=== PATIENT | male | born 1955 | race Caucasian/White ===

== ENCOUNTER 2019-05-14 06:24 | Day surgery (SDC) | payer OTHER ==
[2019-05-14] VITALS (8 sets, daily range): BP systolic 127–142; BP diastolic 78–96
[~2019-05-14] VITALS: Ht 180.3 cm; Wt 92.1 kg
[~2019-05-14 06:24] MED LIST: BENADRYL25 MG ORAL; GRALISE600 MG PO; IBUPROFEN600 MG ORAL; LOVASTATIN20 MG ORAL; LYRICA75 M1 ORAL; PRILOSEC OTC20 MG ORAL; PROAIR HFA8.5 GM INH; PROBIOTIC1 EAC2 PO; RANITIDINE HCL150 M1 ORAL; SINGULAIR10 MG ORAL; SOMA350 MG PO; SYMBICORT 16010.2 G1 IH; ZOLPIDEM TARTRA10 MG ORAL
[2019-05-14] MEDS ORDERED: LR 1000ml 1,000 ML IVLG SCH ×2 (06:57→07:00)
[2019-05-14] MEDS ORDERED: Atropine Inj 1mg/10ml Syr IV PRN (07:00)
[2019-05-14] MEDS ORDERED: DiphenhydrAMINE 50mg/ml Inj IVP PRN (07:00)
[2019-05-14] MEDS ORDERED: fentaNYL 100 mcg/2 mL IV PRN (07:00)
[2019-05-14] MEDS ORDERED: Midazolam 2mg/2ml Inj IVP PRN (07:00)
--- NOTE | 2019-05-14 07:01 | Anethesia Preoperative Eval ---
Anesthesia Pre-op PMH/ROS General Date of Evaluation: May 14, 2019 Time of Evaluation: 06:58 Anesthesiologist: becky ASA Score: ASA 3 Mallampati Score Class I : Soft palate, uvula, fauces, pillars visible Class II: Soft palate, uvula, fauces visible Class III: Soft palate, base of uvula visible Class IV: Only hard plate visible Mallampati Classification: Class II Surgeon: shama Diagnosis: gerd Surgical Procedure: egd/colonoscopy Social History: smoking - former smoker Family History: no anesthesia problems Allergies: Coded Allergies: BENZONATATE (Verified Allergy, Mild, 05/14/19) SKIN RASH Medications: see eMAR Patient NPO?: Yes Past Medical History Pulmonary: Reports: asthma Gastrointestinal/Genitourinary: Reports: GERD, other - ibs, diverticulitis, bph PSxH Narrative: tonsillectomy, left wrist sx, right shouls sx Anesthesia Pre-op Phys. Exam Physician Exam Last Vital Signs Date Time Temp Pulse Resp B/P (MAP) Pulse Ox O2 Delivery O2 Flow Rate FiO2 05/14/19 07:05 98.2 75 18 133/78 96 Room Air Constitutional: NAD Neurologic: CN 2-12 intact Cardiovascular: RRR Respiratory: CTA Gastrointestinal: S/NT/ND Airway Exam Mallampati Score: Class II MO: limited Neck: flexible TMD: 2fb ROM: limited Anesthesia Pre-op A/P Risk Assessment & Plan Assessment: asa3 Plan: mac Status Change Before Surgery: No Pre-Antibiotics Drug: Radha Marquez MD May 14, 2019 07:01
--- NOTE | 2019-05-14 07:37 | Short Stay Surgery H&P ---
History of Present Illness History of Present Illness Chief Complaint Abdominal pains/GERDs and rectal bleedings HPI Dick Whitfield is a 64 year old male who was admitted on for Gerd, Abdominal Pain/rectal bleeding Patient History Allergies: Coded Allergies: BENZONATATE (Verified Allergy, Mild, 05/14/19) SKIN RASH PAST MEDICAL HISTORY: (1) Asthma (2) Hyperlipidemia (3) Carpal tunnel syndrome (4) Diverticulosis (5) Hx of inguinal hernia surgery (6) Postoperative abdominal hernia Medication History Scheduled Albuterol Sulfate* (Proair Hfa*), 2 PUFFS INH Q6H, (Reported) Budesonide/Formoterol Fumarate (Symbicort 160-4.5 Mcg Inhaler), 2 PUFF IH BID, ( Reported) Carisoprodol* (Soma*), 350 MG PO DA, (Reported) Gabapentin (Gralise), 1,800 MG PO DA, (Reported) Ibuprofen* (Motrin*), 800 MG ORAL NEEDED, (Reported) Lactobacillus Acidophilus (Probiotic), 2 EACH PO DA, (Reported) Lovastatin (Lovastatin), 20 MG ORAL BEDTIME, (Reported) Montelukast Sodium* (Singulair*), 10 MG ORAL DAILY, (Reported) Omeprazole Magnesium (Prilosec Otc), 20 MG ORAL DAILY, (Reported) Pregabalin* (Lyrica*), 75 MG ORAL BID, (Reported) Ranitidine Hcl (Ranitidine Hcl), 150 MG ORAL DAILY, (Reported) Scheduled PRN Diphenhydramine Hcl* (Benadryl*), 25 MG ORAL Q6H PRN for Itching, (Reported) Zolpidem Tartrate* (Zolpidem Tartrate*), 10 MG ORAL BEDTIME PRN for Insomnia, ( Reported) Review of Systems Cardiovascular: Reports: no symptoms Respiratory: Reports: asthma Skeletal: Reports: trauma Gastrointestinal: Reports: gastro esophageal reflux disease Genitourinary: Reports: no symptoms Neurologic: Reports: no symptoms Endocrine: Reports: no symptoms Hematologic: Reports: no symptoms Physical Exam Vital Signs Last Vital Signs Date Time Temp Pulse Resp B/P (MAP) Pulse Ox O2 Delivery O2 Flow Rate FiO2 05/14/19 07:05 98.2 75 18 133/78 96 Room Air Skin: normal HENT: normal Heart: normal Lungs: normal Abdomen: abnormal Extremities: normal Genitourinary: normal Plan Plan of Care Upper and lower Gi endoscopy Preop Interventions None Summary of Findings See the reports Attestation Are the patient's medical conditions optimized for surgery? Attestation Response: yes Yazmin Ram MD May 14, 2019 07:37
--- NOTE | 2019-05-14 07:38 | Pre-Procedure Note/Attestation ---
Pre-Procedure Note/Attestation Complete Prior to Procedure Planned Procedure: left Procedure Narrative: Examination of the uper and ower GI tract via endoscopy Indications for Procedure Pre-Operative Diagnosis: R/O gastritis/hemorrhoids/colon polyps/colitis Attestation I attest that I discussed the nature of the procedure; its benefits; risks and complications; and alternatives (and the risks and benefits of such alternatives ), prior to the procedure, with the patient (or the patient's legal factory representative). I attest that, if there was a reasonable possibility of needing a blood transfusion, the patient (or the patient's legal factory representative) was given the [facility] standardized written summary, pursuant to the Darrell Jennifer Blood Safety Act ([place] Health and Safety Code # 1645, as amended). I attest that I re-evaluated the patient just prior to the surgery and that there has been no change in the patient's H&P, except as documented below: Yazmin Ram MD May 14, 2019 07:38
[2019-05-14] MEDS ORDERED: Lidocaine 1% MPF 10mg/ml 5ml ONE (08:00)
[2019-05-14] MEDS ORDERED: Propofol 200mg/20ml IV ONE (08:00)
[2019-05-14] MEDS ORDERED: LR 1000ml ONE (08:00)
--- NOTE | 2019-05-14 08:45 | Endoscopy Procedure Note ---
Endoscopy Procedure Note General Indication for Procedure: Abdominal pains/GERDs/rectal bleeding Procedures Performed: EGD - Evidence of moderate sizehiatal hernia ;otherwise normal upper GI endoscopy. Biopsy was taken per random from gastric body., colonoscopy - Minimal internal hermorrhoids with dicerticulosis of the left colon noted as examination was done upto the base of the cecum. Specimen: yes Pt Tolerated Procedure Well: Yes Estimated Blood Loss: none Anesthesia Anesthesiologist: Dr. Hart Anesthesia: moderate sedation Medications Medication Given: see anesthesia record Inserted Devices Implant(s) used?: No Quality Quality of Bowel Preparation: Fair Did scope reach the cecum?: Yes Was there any complications?: No GI Core Measures 50 yrs or older w/o bx or poly: Yes 10yrs. F/U recommended: Yes 18 years or older w/prev. colo: No <3yrs. since last colonoscopy: No Med reason:<3 yrs.: System Reason:<3 yrs.: Last colonoscopy >= to 3yrs: Yes Yazmin Ram MD May 14, 2019 08:45
--- NOTE | 2019-05-14 08:48 | Discharge Instructions ---
Discharge Instructions Discharge Instructions Follow up with: Doctor will send the report to referring MD For Congestive Heart Failure Reminder Report to your physician any weight gain of 5 pounds or more in one week. Yazmin Ram MD May 14, 2019 08:48
--- NOTE | 2019-05-14 08:54 | Immediate Post-Op Evaluation ---
Immediate Post-Op Evalulation Immediate Post-Op Evalulation Procedure: egd/colonoscopy/bx Date of Evaluation: May 14, 2019 Time of Evaluation: 08:54 IV Fluids: 400ml lr Blood Products: none Estimated Blood Loss: negligible Blood Pressure Systolic: 138 Blood Pressure Diastolic: 96 Pulse Rate: 74 Respiratory Rate: 18 O2 Sat by Pulse Oximetry: 97 Temperature (Fahrenheit): 98.6 Pain Score (1-10): 0 Nausea: No Vomiting: No Complications none Patient Status: awake, reacts, patent Hydration Status: adequate Drug: Radha Marquez MD May 14, 2019 08:54
--- NOTE | 2019-05-14 08:56 | 48 Hour Post Anesthesia Eval ---
Post Anesthesia Evaluation Procedure: egd/colonoscopy/bx Date of Evaluation: May 14, 2019 Time of Evaluation: 08:56 Blood Pressure Systolic: 133 0: 90 Pulse Rate: 74 Respiratory Rate: 18 Temperature (Fahrenheit): 98.6 O2 Sat by Pulse Oximetry: 98 Airway: patent Nausea: No Vomiting: No Pain Intensity: 0 Hydration Status: adequate Cardiopulmonary Status: stable Mental Status/LOC: patient returned to baseline Post-Anesthesia Complications: none Follow-up care needed: N/A Radha Hart MD May 14, 2019 08:56
--- NOTE | 2019-05-14 16:00 | Pre-op HX & Phy Repo 2 SIG ---
DATE OF ADMISSION: 05/14/2019 HISTORY OF PRESENT ILLNESS: The patient is a 64-year-old gentleman who is being seen prior to undergoing the procedure of upper and lower GI endoscopy for which he has been scheduled to receive for evaluation of his gastrointestinal conditions. 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 He currently reported to me that in an accident he slipped and fell down on asphalt as he was carrying his weapons also and at this point he had injuries over different parts of the body including neck and left side of the hand and the wrist with abrasions, etc. He received medical treatment and at this point he has been experiencing symptoms of gastroesophageal reflux and heartburn. He also has complained of experiencing pain over the epigastric area. The patient does have history of operation for ventral hernia in the past with mesh placement as well that he has mentioned. He has been taking multiple medications including Pepto-Bismol, Zantac, and other PPIs, which some resolved, but not completely. He reports to me that Nexium does not help him, however, he has changed it to Prilosec, which seems to be more helpful. He also complains of symptoms of dysphagia at times. The other problem that he has been complaining is history of periodic rectal bleeding, as he has also received colonoscopic examination in the past and diagnosed to have diverticulosis of the colon as well. This rectal bleeding is episodic and occurs intermittently, in particular that the patient does have symptoms of constipation as well that he has been dealing with. He also complains of eructations and belching as well. PAST MEDICAL HISTORY: The patient has had history of asthma, diverticulitis, hyperlipidemia, high cholesterol, and carpal tunnel syndrome, and he told me that he was diagnosed to have chronic regional pain syndrome. PAST SURGICAL HISTORY: He has had multiple surgeries including ventral hernia, inguinal hernia and umbilical hernia, and removal of lipoma in the right flank. ALLERGIES: He is allergic to pollen and dust. HABITS: He drinks very minimally at times, but he denies smoking cigarettes or using illicit drugs. MEDICATIONS: Current medications at this time are Prilosec, losartan, zolpidem, Zantac, and Lyrica. REVIEW OF SYSTEMS: Basically history of present illness and most of the gastrointestinal symptoms as I mentioned earlier. PHYSICAL EXAMINATION: VITAL SIGNS: At this time revealed temperature 98.2, pulse rate 75 per minute, blood pressure 133/78, and respiratory rate 18 per minute. GENERAL: Reveals alert, oriented, very pleasant gentleman, who does not seem to be in any acute distress. He looks well developed and nourished. HEENT: Normocephalic. Pupils equal in size and reactive to light and accommodation. No visible jaundice. Buccal cavity, tongue midline, well hydrated. No ulcers. NECK: Supple. No JVD or thyromegaly. CHEST: Clear to auscultation and percussion. No rales or rhonchi. HEART: S1, S2 normal. Regular rhythm. No gallops or murmur. ABDOMEN: Soft but mildly tender over the upper part of the abdomen. There are areas of tenderness over the lower part of the abdomen as well, but there is no hepatosplenomegaly. Bowel sounds are present. No palpable mass. EXTREMITIES: No pretibial edema, cyanosis, or clubbing. CENTRAL NERVOUS SYSTEM: Grossly normal. INITIAL PREOPERATIVE IMPRESSION: 1. Epigastric pain, mostly consistent with gastroesophageal acid reflux, rule out gastritis, peptic ulcer disease, or NSAID-induced gastropathy. 2. He has dysphagia possibly secondary to gastroesophageal reflux, rule out esophagitis. 3. History of rectal bleeding, possibly secondary to hemorrhoids, rule out colitis, colon polyps, or hemorrhoids. 4. History of diverticulitis and asthma. 5. Possibly irritable bowel syndrome, IBS. RECOMMENDATION: The patient at this time seems to be quite stable to undergo the procedure of upper and lower GI endoscopy for which he has been scheduled. He understands the risks and benefits and will sign the consent. Said Lurdes Ram DR: FANTASMA JOB#: [id number] CC:
--- NOTE | 2019-05-14 16:15 | Operative Note - Dictated ---
DATE OF OPERATION: 05/14/2019 SURGEON: Yazmin Ram M.D. PROCEDURE: Esophagogastroduodenoscopy with biopsy. PREOPERATIVE DIAGNOSIS: Abdominal pain, history of chronic gastroesophageal reflux. POSTOPERATIVE DIAGNOSIS: Moderate-sized hiatal hernia, otherwise completely normal upper GI endoscopy. Biopsy was taken per random from gastric body. MEDICATION USED: Per Dr. Stauffer. INSTRUMENT: GIF Olympus upper GI video endoscope. DESCRIPTION OF PROCEDURE: The patient after arriving at endoscopy unit, was told about risks and benefits of the procedure, which he accepted and signed informed consent. At this time, he was put in the left lateral decubitus position. After adequate IV sedation, the scope was gently passed through the cricopharyngeal area, was lodged into the upper esophagus and gradually advanced towards gastroesophageal junction. The entire length of the esophagus looked normal. No evidence of varices, inflammatory process, ulceration, stricture, etc. was found. GE junction also looked normal without evidence of Fernando's. However, there was evidence of moderate-sized hiatal hernia noted. At this time, the scope was passed through into the stomach. Gastric cavity was distended with insufflation of air and gradually area of the fundus and the body and the antrum were examined in commercial banker fashion, which revealed no abnormality in gastric mucosa. No ulcers or tumors or polyps were found. The retroflexion maneuver was applied and the area of the gastroesophageal junction was examined in a closer fashion, which basically revealed normal findings. At this time, one random biopsy from gastric body obtained and subsequently scope was passed through the antrum, introduced into the pylorus. First and second portion of duodenum were also looked at which looked completely normal. Finally, scope was pulled out and the procedure was terminated. The patient tolerated the procedure well. Yazmin Ram M.D. DR: FANTASMA JOB#: [id number] CC:
--- NOTE | 2019-05-14 16:30 | Operative Note - Dictated ---
DATE OF OPERATION: 05/14/2019 SURGEON: Yazmin Ram M.D. PROCEDURE: Total colonoscopy. PREOPERATIVE DIAGNOSES: 1. Rectal bleeding. 2. Abdominal pain. POSTOPERATIVE DIAGNOSES: Evidence of minimal internal hemorrhoid and diverticulosis of the left colon, otherwise complete normal study up to the base of the cecum as it is examined MEDICATION USED: Per Dr. Stauffer. INSTRUMENT: GIF Olympus video colonoscope. DESCRIPTION OF PROCEDURE: The patient after arriving endoscopy unit, was told about risks and benefits of the procedure, which he accepted and signed informed consent. At this time, he was put in the left lateral decubitus position. After adequate IV sedation, the scope was gently passed through the anal area, which revealed evidence of minimal internal hemorrhoid and retroflexion maneuver was applied, which revealed there was also evidence of hypertrophied anal papilla. However, there was no bleeding, no friability, etc. The rectum itself also looked completely normal. At this time, the scope was gradually introduced into the rectum and from there into rectosigmoid area and descending colon. The colon cleanup was not adequate and there was formed stool along the colon, which made the examination somewhat difficult. However, there were numerous diverticular lesions over the left colon only. There was no evidence of colitis, tumors, or polyps. Finally, the scope reached to the splenic flexure. From there, it was guided into the transverse colon, right hepatic flexure, and finally right colon all the way to the base of the cecum. All of these areas, however, remained to be completely normal and no evidence of diverticular lesions seen. Finally, after reaching to the base of the cecum, within 7 minutes, the scope was gradually pulled out and finding no other abnormalities, procedure was terminated. The patient tolerated the procedure well and left the endoscopy room in a good condition. Yazmin Ram M.D. DR: CHRISTI JOB#: [id number] CC:
== END 2019-05-14 10:05 | disposition home or self-care (01) ==
LOC: GAS 06:24
DX: K62.5 Hemorrhage of anus and rectum (principal); R10.9 Unspecified abdominal pain; K64.8 Other hemorrhoids; K57.90 Diverticulosis of intestine, part unspecified, without perforation or abscess without bleeding; K44.9 Diaphragmatic hernia without obstruction or gangrene; E78.5 Hyperlipidemia, unspecified; E78.00 Pure hypercholesterolemia, unspecified; Z79.899 Other long term (current) drug therapy; G56.00 Carpal tunnel syndrome, unspecified upper limb; K21.9 Gastro-esophageal reflux disease without esophagitis; Z88.8 Allergy status to other drugs, medicaments and biological substances; K29.50 Unspecified chronic gastritis without bleeding
CPT/HCPCS: 43239; 45378; J2704; 94003; 94150